=== PATIENT | female | born 1995 | race Caucasian/White ===

== ENCOUNTER 2016-07-01 22:57 | Emergency (ER) | payer SELFPAY ==
[~2016-07-01] VITALS: Ht 152.4 cm; Wt 59.0 kg
[2016-07-01 23:08] VITALS: Ht 152.4 cm; Wt 59.0 kg
--- NOTE | 2016-07-02 02:42 | ERD ---
ER Documentation Chief Complaint Date/Time DATE: 07/02/16 TIME: 02:40 Chief Complaint upper abd pain today HPI 20-year-old female presents here in emergency department for complaints of upper abdominal pain, epigastric pain radiating to the right upper quadrant started today. Patient described the pain as sharp pain, 6/and scale, now better or worse with anything. Patient denies any nausea vomiting diarrhea or constipation. Patient denies any fever or chills. Patient denies any flank pain. Patient did not take any medications up and symptoms. ROS All systems reviewed and are negative except as per history of present illness. Medications Home Meds Reported Medications [none] Unknown Strength No Conflict Check 07/02/16 Allergies Allergies: Coded Allergies: No Known Allergy (Unverified , 07/01/16) PMhx/Soc Medical and Surgical Hx: pt denies Medical Hx, pt denies Surgical Hx History of Surgery: No Anesthesia Reaction: No Hx Neurological Disorder: No Hx Respiratory Disorders: No Hx Cardiac Disorders: No Hx Psychiatric Problems: No Hx Miscellaneous Medical Probl: No Hx Alcohol Use: No Hx Substance Use: No Hx Tobacco Use: No Smoking Status: Never smoker FmHx Family History: No coronary disease, No diabetes, No other Physical Exam Vitals Vital Signs Date Time Temp Pulse Resp B/P Pulse Ox O2 Delivery O2 Flow Rate FiO2 07/01/16 23:08 98.3 77 20 122/80 100 Physical Exam GENERAL: The patient is well developed and appropriate for usual state of health, in no apparent distress. CHEST: Clear to auscultation bilaterally. There are no rales, wheezes or rhonchi. HEART: Regular rate and rhythm. No murmurs, clicks, rubs or gallops. No S3 or S4. ABDOMEN: Soft, nontender and nondistended. Good bowel sounds. No rebound or guarding. No gross peritonitis. No gross organomegaly or masses. No Tovar sign or McBurney point tenderness. BACK: No midline or flank tenderness. EXTREMITIES: Equal pulses bilaterally. There is no peripheral clubbing, cyanosis or edema. No focal swelling or erythema. Full range of motion. Grossly neurovascularly intact. NEURO: Alert and oriented. Cranial nerves 2-12 intact. Motor strength in all 4 extremities with 5/5 strength. Sensation grossly intact. Normal speech and gait. SKIN: There is no apparent rash or petechia. The skin is warm and dry. HEMATOLOGIC AND LYMPHATIC: There is no evidence of excessive bruising or lymphedema. No gross cervical, axillary, or inguinal lymphadenopathy. Result Diagram: 07/02/16 0300 07/02/16 0300 Results 24 hrs Laboratory Tests Test 07/02/16 02:57 07/02/16 03:00 Urine Bilirubin NEGATIVE Urine Clarity HAZY Urine Color LT. YELLOW Urine Glucose NEGATIVE% Urine Hemoglobin NEGATIVE Urine Ketones NEGATIVE Urine Leukocyte Esterase NEGATIVE Urine Nitrite NEGATIVE Urine Specific [place] 1.015 Urine Total Protein NEGATIVE Urine Urobilinogen 0.2 E.U./dL Urine pH 8.5 Alanine Aminotransferase (ALT/SGPT) 17IU/L Albumin 4.3g/dl Albumin/Globulin Ratio 1.30 Alkaline Phosphatase 86IU/L Anion Gap 16 Aspartate Amino Transf (AST/SGOT) 22IU/L Basophils # 0.010^3/ul Basophils % 0.5% Blood Urea Nitrogen 10mg/dl Calcium Level 8.9mg/dl Carbon Dioxide Level 30mmol/L Chloride Level 101mmol/L Creatinine 0.54mg/dl Direct Bilirubin 0.00mg/dl Eosinophils # 0.110^3/ul Eosinophils % 0.9% Globulin 3.30g/dl Glucose Level 88mg/dl Hematocrit 41.3% Hemoglobin 14.1g/dl Indirect Bilirubin 0.3mg/dl Lipase 86U/L Lymphocytes # 2.110^3/ul Lymphocytes % 21.9% Mean Corpuscular Hemoglobin 29.5pg Mean Corpuscular Hemoglobin Concent 34.1g/dl Mean Corpuscular Volume 86.5fl Mean Platelet Volume 8.5fl Monocytes # 0.810^3/ul Monocytes % 8.2% Neutrophils # 6.510^3/ul Neutrophils % 68.5% Nucleated Red Blood Cells # 0.010^3/ul Nucleated Red Blood Cells % 0.0/100WBC Platelet Count 58066^3/UL Potassium Level 3.3mmol/L Red Blood Count 4.7710^6/ul Red Cell Distribution Width 12.3% Sodium Level 144mmol/L Total Bilirubin 0.3mg/dl Total Protein 7.6g/dl White Blood Count 9.610^3/ul PROCEDURE: ULTRASOUND LIMITED ABDOMEN CLINICAL INDICATION: 20-year-old female with abdominal pain. TECHNIQUE: Multiple sonographic of the right upper quadrant of the abdomen were obtained. The images were reviewed on a PACS workstation. COMPARISON: None. FINDINGS: The pancreas is partially visualized and is otherwise normal. The liver displays normal echogenicity. The liver measures 13.7 cm in length. No evidence of intrahepatic biliary ductal dilatation is seen. The portal and hepatic veins are unremarkable. The gallbladder demonstrates no wall thickening, sludge, nor stones. No pericholecystic fluid is seen. The common bile duct measures 2.7 mm and is not dilated. The right kidney displays normal echogenicity. The right kidney measures 9.4 cm in maximal length. No caliectasis or hydronephrosis is seen. No free fluid is seen. IMPRESSION: Unremarkable right upper quadrant abdominal ultrasound. .Gelacio Haddad MD, Date Time Electronically viewed and signed by .Gelacio Haddad MD, on 07/02/2016 03:21 .M/ CC: BLANCA COX THERMOPLASTIC TECHNICIAN Procedures/MDM Medical Decision Making: Patient epigastric pain nonspecific at this time, possible gastritis related. It can be also viral. There is low suspicion for abdominal emergencies at this time. Patients abdominal exam is normal at this time. Patients radiology exam does not show any abdominal emergencies at this time. There is low suspicion for appendicitis, cholecystitis, abdominal aortic aneurysms or peritonitis at this time. There is low suspicion for sepsis. Patient appears well and is hemodynamically stable. Disposition: Home. Condition: Stable Prescription Zofran, tramadol, Mylanta, omeprazole Instructions: Patient is advised to take medications as prescribed. Patient is advised to rest, increase fluid intake and do brat diet for next 1-2 days and progress as tolerated. Patient is advised that if symptoms are worse, severe abdominal pain, uncontrolled vomiting, high fever, severe flank pain, worst signs and symptoms, to return to the emergency department immediately. Otherwise, patient can follow up with primary care doctor in 5-7 days. Departure Diagnosis: Primary Impression: Abdominal pain Abdominal location: epigastric Qualified Code: R10.13 - Epigastric pain Condition: Stable Patient Instructions: Epigastric Pain (Uncertain Cause) Additional Instructions: Patient is advised to take medications as prescribed. Patient is advised to rest, increase fluid intake and do brat diet for next 1-2 days and progress as tolerated. Patient is advised that if symptoms are worse, severe abdominal pain , uncontrolled vomiting, high fever, severe flank pain, worst signs and symptoms , to return to the emergency department immediately. Otherwise, patient can follow up with primary care doctor in 5-7 days. BLANCA COX NP Jul 02, 2016 02:42
[2016-07-02 03:14] LABS: BASOPHILS % 0.5 % (0.0-2.0); EOSINOPHILS # 0.1 10^3/ul (0.0-0.5); EOSINOPHILS % 0.9 % (0.0-7.0); HEMATOCRIT 41.3 % (37.0-47.0); HEMOGLOBIN 14.1 g/dl (12.0-16.0); LYMPHOCYTES # 2.1 10^3/ul (0.8-2.9); LYMPHOCYTES % 21.9 % (18.0-55.0); MEAN CORPUSCULAR HEMOGLOBIN 29.5 pg (29.0-33.0); MEAN CORPUSCULAR HGB CONC 34.1 g/dl (32.0-37.0); MEAN CORPUSCULAR VOLUME 86.5 fl (72.0-104.0); MEAN PLATELET VOLUME 8.5 fl (7.4-10.4); MONOCYTE # 0.8 10^3/ul (0.3-0.9); MONOCYTES % 8.2 % (0.0-13.0); NEUTROPHIL # 6.5 10^3/ul (1.6-7.5); NEUTROPHILS % 68.5 % (30.0-74.0); PLATELET COUNT 333 10^3/UL (140-440); RED BLOOD COUNT 4.77 10^6/ul (4.20-5.40); RED CELL DISTRIBUTION WIDTH 12.3 % (11.5-14.5); UNCORRECTED WBC 9.6 10^3/ul (4.8-10.8); WHITE BLOOD COUNT 9.6 10^3/ul (4.8-10.8)
[2016-07-02 03:15] LABS: CONDITION 1
--- NOTE | 2016-07-02 03:21 | RADRPT ---
PROCEDURE: ULTRASOUND LIMITED ABDOMEN CLINICAL INDICATION: 20-year-old female with abdominal pain. TECHNIQUE: Multiple sonographic of the right upper quadrant of the abdomen were obtained. The imag es were reviewed on a PACS workstation. COMPARISON: None. FINDINGS: The pancreas is partially visualized and is otherwise normal. The liver displays normal echogenicity. The liver measures 13.7 cm in length. No evidence of intrah epatic biliary ductal dilatation is seen. The portal and hepatic veins are unremarkable. The gallbladder demonstrates no wall thickening, sludge, nor stones. No pericholecystic fluid is see n. The common bile duct measures 2.7 mm and is not dilated. The right kidney displays normal echogenicity. The right kidney measures 9.4 cm in maximal length. N o caliectasis or hydronephrosis is seen. No free fluid is seen. IMPRESSION: Unremarkable right upper quadrant abdominal ultrasound. .Gelacio Haddad MD, MD Date Time Electronically viewed and signed by .Gelacio Haddad MD, on 07/02/2016 03:21 .M/
[2016-07-02 03:23] LABS: URINE BILIRUBIN (Dip) NEGATIVE (NEGATIVE); URINE BLOOD (Dip) NEGATIVE (NEGATIVE); URINE COLOR LT. YELLOW (YELLOW); URINE GLUCOSE (Dip) NEGATIVE (NEGATIVE); URINE KETONES (Dip) NEGATIVE (NEGATIVE); URINE LEUKOCYTE ESTERASE (Dip) NEGATIVE (NEGATIVE); URINE NITRITE (Dip) NEGATIVE (NEGATIVE); URINE TOTAL PROTEIN (Dip) NEGATIVE (NEGATIVE); URINE UROBILINOGEN (Dip) 0.2 E.U./dL (0.1-1.0)
[2016-07-02 03:23] LABS: ALBUMIN 4.3 g/dl (3.3-4.9)
[2016-07-02 03:24] LABS: POTASSIUM 3.3 mmol/L (3.5-5.1)
[2016-07-02 03:26] LABS: ALBUMIN/GLOBULIN RATIO 1.3; BILIRUBIN,INDIRECT 0.3 mg/dl (0-1.1); BILIRUBIN,TOTAL 0.3 mg/dl (0.2-1.3); CREATININE 0.54 mg/dl (0.44-1.00); TOTAL PROTEIN 7.6 g/dl (6.1-8.1)
[2016-07-02 03:27] LABS: CALCIUM 8.9 mg/dl (8.4-10.2)
[2016-07-02 03:28] LABS: ADD UMIC NO
[2016-07-02] MEDS ORDERED: MAG-19 PO (04:06)
[2016-07-02] MEDS ORDERED: TRAM50TA2 PO (04:06)
[2016-07-02] MEDS ORDERED: ONDA4TAB14 PO (04:06)
[2016-07-02] MEDS ORDERED: OMEP20CA16 PO (04:06)
[2016-07-02 04:14] VITALS: BP 113/67; PULSE 69; RESP 16
== END 2016-07-02 04:21 | disposition home or self-care (01) ==
LOC: FTE 22:57
DX: R10.13 Epigastric pain (principal)
CPT/HCPCS: 36415; 76705; 80053; 81003; 83690; 85025

== ENCOUNTER 2018-09-26 03:12 | Inpatient (IN) | payer MEDICAID ==
[~2018-09-26] VITALS: Ht 154.9 cm; Wt 79.4 kg
[~2018-09-26 03:12] MED LIST: MAG-19 PO; OMEP20CA16 PO; ONDA4TAB14 PO; TRAM50TA2 PO
[2018-09-26] MEDS ORDERED: PNV11TAB PO (03:34)
[2018-09-26 03:35] VITALS: BP 120/75; PULSE 75; RESP 18; Ht 154.9 cm; Wt 79.4 kg
[2018-09-26] MEDS ORDERED: MISOPROSTOL 200 MCG TAB PR PRN (04:00)
[2018-09-26] MEDS ORDERED: BUTORPHANOL 2 MG INJ IV PRN (04:00)
[2018-09-26] MEDS ORDERED: OXYTOCIN 30 UNITS/LR 500 ML IV SCH ×4 (04:00→19:30)
[2018-09-26] MEDS ORDERED: OXYTOCIN 30 UNITS/LR 500 ML IV PRN (04:00)
[2018-09-26] MEDS ORDERED: METHYLERGONOVINE 0.2 MG INJ IM PRN (04:00)
[2018-09-26] MEDS ORDERED: CARBOPROST 250 MCG INJ IM PRN (04:00)
[2018-09-26] MEDS ORDERED: IBUPROFEN 600 MG TAB PO PRN (04:00)
[2018-09-26] MEDS ORDERED: LIDOCAINE 1% (MPF) 30 ML INJ INJ PRN (04:00)
[2018-09-26] MEDS: LACTATED RINGER'S 1,000 ML IV SCH ×3 (04:22→16:44)
--- NOTE | 2018-09-26 05:47 | HP ---
Date/Time of Note Date/Time of Note DATE: 09/26/18 TIME: 05:39 OB - History Hx of Present Free Text/Dictation 23-year-old 1 para 0 at 39 weeks and 1 day of gestation with estimated date of delivery October 02, 2018 Patient presents with chief complaint of leaking fluid and uterine contractions She reports positive movement; denies any vaginal bleeding GBS status is negative Estimated Due Date: October 02, 2018 : 1 Para: 0 Care: Good Care Past Family/Social History * Past Medical, Surgical, Family and Obstetric Histories reviewed from chart. OB Admission Exam Vital Signs Vital Signs Vital Signs Date Temp Pulse Resp B/P (MAP) Pulse Ox O2 O2 Flow FiO2 Time Delivery Rate 09/26/18 97.8 75 18 120/75 Room Air 03:35 (90) Physical Exam HEENT: WNL Heart: Rhythm Normal Lungs: Clear, Equal Abdomen: WNL Extremities: Normal Reflexes: Normal Cervical Dilatation: 4cm Effacement: 100% Station: -3 Membranes: Intact Heart Rate: 140's Accelerations: Accelerations Present Varibility: Marked Contractions on Admission: < 5 Minutes Apart Intensity: Moderate Last 72 hours Lab Results Rupture of membrane negative CBC & BMP 09/26/18 04:20 PROCEDURE: US OB biophysical profile. CLINICAL INDICATION: decreased movements, contractions TECHNIQUE: Multiple sonographic images of the pelvis were obtained. The images were reviewed on a PACS workstation. COMPARISON: No prior studies are available for comparison. FINDINGS: There is a single live intrauterine gestation. Cardiac activity is present with 139 beats per minute. There is a vertex presentation. The placenta is anterior. There is no evidence of placental abruption. EJ = 7.5 cm. Biophysical profile: movement 2/2 tone 2/2. breathing 2/2 EJ 2/2 Total 8/8 RPTAT: AA . IMPRESSION: Normal biophysical profile. Slightly decreased EJ. . .Enio Mulligan MD, Date Time Electronically viewed and signed by .Enio Mulligan MD, on 09/26/2018 06:43 .S/ CC: JEANNA SOARES MD [phone] PROCEDURE: US OB. CLINICAL INDICATION: Size and dates TECHNIQUE: Multiple sonographic images of the pelvis and gravid uterus were obtained. The images were reviewed on a PACS workstation. COMPARISON: No prior studies are available for comparison. FINDINGS: Gestation: Single live intrauterine gestation. Cardiac activity: 163 beats per minute. Presentation: Vertex. Placenta: Location: Anterior. Appearance: No previa or abruption. Measurements: BPD = 8.9 cm, 36 weeks and 1 day HC = 32.4 cm, 36 weeks and 4 days AC = 37.7 cm, 41 weeks and 5 days FL = 7.6 cm, 38 weeks and 5 days Gestational Age: AUA estimated gestational age: 38 weeks 2 days LMP estimated gestational age: 39 weeks 1 day AUA estimated date of delivery: 10/08/18 The EFW = 3856 g, 81%ile based on LMP age. RPTAT: AA IMPRESSION: Single live intrauterine gestation of 38 weeks 2 days by ultrasound criteria. .Enio Mulligan MD, MD Date Time Electronically viewed and signed by .Enio Mulligan MD, MD on 09/26/2018 06:44 .S/ CC: JEANNA SOARES MD [phone] OB Assessment/Plan Reason for admission: active labor Induction Method: per Pitocin Protocol Other plan: Admit to labor and delivery Oxytocin augmentation Pain meds as needed Copies To: CC: MARKELL BUCKLEY BAHAREH MD September 26, 2018 05:46
--- NOTE | 2018-09-26 06:28 | TRIAGE ---
OB Triage Datetime Report Generated by CPN: 09/26/2018 06:28 Datetime: 09/26/2018 05:20 Stage of : Labor Labor Evaluation Frequency: 2-5 Monitor Mode: External Duration (sec)2399: 50-100 Quality: Strong Pattern: Normal: <= 5 Contractions in 10 Minutes Resting Tone [place]: Relaxed Heart Rate FHR Baseline Rate: 145 Monitor Mode: External US Variability: Moderate 6-25 bpm Accelerations: 15X15 Decelerations: None Category: Category I Datetime: 09/26/2018 04:50 Vaginal Exam Dilatation (cms): 3.5 Effacement (%): 90 Station: -2 Exam By: Zhao CARRIE Membrane Status: Intact Vaginal Bleeding: Normal Show ROM Test Kit: Negative Datetime: 09/26/2018 04:20 Stage of : Labor Labor Evaluation Frequency: 2-6 Monitor Mode: External Duration (sec)2399: 70-100 Quality: Strong Pattern: Normal: <= 5 Contractions in 10 Minutes Resting Tone [place]: Relaxed Heart Rate FHR Baseline Rate: 155 Monitor Mode: External US Variability: Moderate 6-25 bpm Accelerations: Prolonged Decelerations: None Category: Category I Datetime: 09/26/2018 04:07 Stage of : Labor Assessment Type: Admission Assessment Vaginal Bleeding: None Maternal Assessment Level of Consciousness: Fully Conscious DTR's/Clonus: DTRs 2+; No Clonus Headache: Denies Blurred Vision: No Respiratory Effort: Unlabored; Regular Rhythm; Equal Expansion Breath Sounds, Left: Clear and Equal Breath Sounds, Right: Clear and Equal Nausea/Vomiting: Denies RUQ Epigastric Pain: Denies Lower Extremities Edema: Bilateral Lower Extremities Degree: 1+ Upper Extremities Edema: None Degree: None Facial Edema: None Fall Risk Assessment History of Falling: (0) No Secondary Diagnosis: (0) No Ambulatory Aid: (0) Bedrest/Nurse Assist IV Therapy: (0) No Gait: (0) Normal/Bedrest/Immobile Mental Status: (0) Oriented to Own Ability Fall Score: 0 Fall Risk Score Definition: No Risk: No action required Pain Assessment Pain Scale: 7 Pain Presence: Intermittent Pain Type: Contraction Pain Location: Abdomen Pain Goal: 5 Datetime: 09/26/2018 04:03 Time of Arrival: 09/26/2018 04:00 EGA: 39.1 Arrived By: Ambulatory Arrived From: triage Datetime: 09/26/2018 03:41 Vaginal Exam Dilatation (cms): 3.0 Effacement (%): 90 Station: -2 Exam By: Roe Bennett RN Membrane Status: Intact Vaginal Bleeding: None Pool: Negative Nitrazine: Negative Cervix, Consistency: Soft Cervix, Position: Posterior Presentation 'A': Cephalic Datetime: 09/26/2018 03:28 Stage of : OB Triage Assessment Type: Triage Maternal Assessment Level of Consciousness: Fully Conscious DTR's/Clonus: DTRs 2+; No Clonus Headache: Denies Blurred Vision: No Respiratory Effort: Unlabored; Regular Rhythm; Equal Expansion Breath Sounds, Left: Clear and Equal Breath Sounds, Right: Clear and Equal Nausea/Vomiting: Denies RUQ Epigastric Pain: Denies Lower Extremities Edema: Bilateral Lower Extremities Degree: 1+ Upper Extremities Edema: None Degree: None Facial Edema: None Temperature Route: Oral Fall Risk Assessment History of Falling: (0) No Secondary Diagnosis: (0) No Ambulatory Aid: (0) Bedrest/Nurse Assist IV Therapy: (0) No Gait: (0) Normal/Bedrest/Immobile Mental Status: (0) Oriented to Own Ability Fall Score: 0 Fall Risk Score Definition: No Risk: No action required Pain Assessment Pain Scale: 7 Pain Presence: Intermittent Pain Type: Cramping Pain Location: Abdomen Pain Relief Measures: Comfort Measures Datetime: 09/26/2018 03:19 Time of Arrival: 09/26/2018 03:07 EGA: 39.1 Arrived By: Wheelchair Arrived From: Home Chief Complaint: UC's since 1000 Movement: Present Contractions: Regular Time Contractions Began: 09/25/2018 10:00 Contractions: Every 5 minutes Rupture of Membranes: Unsure Vaginal Bleeding: None Vaginal Discharge: Denies Recent Sexual Intercouse: Denies Abdominal Trauma: Not Applicable Patient Complaints: Contractions; Other Additional Patient Complaints: Leaking since 1000 Time Provider Notified: 09/26/2018 03:50 Provider Notified: Dr. Gomez Initial Plan: CEFM, sterile spec, nitrazine, ROM+, VE
--- NOTE | 2018-09-26 09:59 | PREAC ---
Date/Time of Note Date/Time of Note DATE: 09/26/18 TIME: 09:58 Anesthesia Eval and Record Evaluation Time Pre-Procedure Interview DATE: 09/26/18 TIME: 09:58 Age 23 Sex female NPO: 8 hrs Preoperative diagnosis intrauterine Planned procedure labor epidural Past Medical History Past Medical History: None : : (1), Para: (0), Gestational age: (39+) Surgery & Anesthesia Issues No known issue Meds Anticoagulation: No Beta Stephanie within 24 hr: No Reason Beta Stephanie not given: Pt. not on B-Stephanie Reported Medications [id number] ( 19) 1 Each Tablet, 1 TAB PO DAILY, TAB 09/26/18 Discontinued Reported Medications [none] Unknown Strength No Conflict Check 07/02/16 Discontinued Scripts Magaldrate/Simethicone* (Mylanta*) 355 Ml Susp, 30 ML PO QID PRN for GASTROINTESTINAL UPSET, #1 BOTTLE Prov:BLANCA COX NP 07/02/16 Omeprazole* (Omeprazole*) 20 Mg Capsule.dr, 20 MG PO DAILY, #30 Prov:BLANCA COX NP 07/02/16 Ondansetron (Ondansetron Odt) 4 Mg Tab.rapdis, 4 MG PO Q8 PRN for NAUSEA AND/OR VOMITING, #30 TAB Prov:BLANCA COX NP 07/02/16 Tramadol HCl (Tramadol HCl) 50 Mg Tablet, 50 MG PO Q6 PRN for PAIN, #20 TAB Prov:BLANCA COX NP 07/02/16 Current Medications Lactated Ringer's 1,000 ml @ 125 mls/hr Q8H IV Last administered on 09/26/18at 04:22; Admin Dose 125 MLS/HR; Start 09/26/18 at 03:49 Butorphanol Tartrate (Stadol) 2 mg Q2H PRN IV .PAIN; Start 09/26/18 at 04:00 Lidocaine (Xylocaine 1% (Mpf)) 30 ml ONCE PRN INJ .EPISIOTOMY; Start 09/26/18 at 04:00 Oxytocin/Lactated Ringer's 500 ml @ 500 mls/hr ONCE POST IV ; Start 09/26/18 at 04:00 Oxytocin/Lactated Ringer's 500 ml @ 125 mls/hr POST IV ; Start 09/26/18 at 04:00 Ibuprofen (Motrin) 600 mg ONCE PRN PO .PAIN 1-5; Start 09/26/18 at 04:00 Oxytocin/Lactated Ringer's 500 ml @ 0 mls/hr ONCE PRN IV .VAGINAL BLEEDING; Start 09/26/18 at 04:00 Methylergonovine Maleate (Methergine) 0.2 mg ONCE PRN IM .VAGINAL BLEEDING; Start 09/26/18 at 04:00 Carboprost Tromethamine (Hemabate) 250 mcg ONCE PRN IM .VAGINAL BLEEDING; Start 09/26/18 at 04:00 Misoprostol (Cytotec) 1,000 mcg ONCE PRN NE .VAGINAL BLEEDING; Start 09/26/18 at 04:00 Oxytocin/Lactated Ringer's 500 ml @ 0 mls/hr Q0M IV Last administered on 09/26/18at 06:36; Admin Dose 1 MLS/HR; Start 09/26/18 at 06:00 Meds reviewed: Yes Allergies Coded Allergies: No Known Allergy (Unverified , 09/26/18) Allergies Reviewed: Yes Labs/Studies Labs Reviewed: Reviewed by anesthesiologist Result Diagram: 09/26/18 0420 Laboratory Tests 09/26/18 04:20 Blood Bank Test 09/26/18 04:20 Antibody Screen NEGATIVE Blood Type O POSITIVE Rh Immune Globulin Candidate NO test: N/A Pre-procedure Exam Last vitals Vital Signs Date Temp Pulse Resp B/P (MAP) Pulse Ox O2 O2 Flow FiO2 Time Delivery Rate 09/26/18 97.8 75 18 120/75 Room Air 03:35 (90) Airway: Adequate mouth opening, Adequate thyromental dist Mallampati: Mallampati II Teeth: Normal Lung: Normal Heart: Normal ASA Physical Status ASA physical status: 2 Emergency: None Planned Anesthetic Neuraxial: Epidural Planned Pain Management Epidural, Parenteral pain med Pre-operative Attestations Prior to commencing anesthesia and surgery, the patient was re-evaluated, there was verification of: *The patient's identity *The results of appropriate recent lab work and preoperative vital signs *The above evaluation not changing prior to induction *Anesthetic plan, risk benefits, alternative and complications discussed with patient/family; questions answered; patient/family understands, accepts and wishes to proceed. EZEQUIEL CARUSO MD September 26, 2018 09:59
[2018-09-26] MEDS ORDERED: ROPIVACAINE 0.2% 100ML BAG EPI SCH (10:00)
[2018-09-26] MEDS ORDERED: NALOXONE (0.4 MG/ML) INJ IV PRN ×2 (10:00→21:00)
[2018-09-26] MEDS ORDERED: ONDANSETRON 4 MG INJ IV PRN ×3 (10:00→21:00)
[2018-09-26] MEDS ORDERED: DIPHENHYDRAMINE 50 MG INJ IV PRN ×3 (10:00→21:00)
[2018-09-26] MEDS ORDERED: FENTAnyl 2MCG/ML-ROPIV 0.2% 100 ML ONE (10:07)
--- NOTE | 2018-09-26 11:14 | PAC ---
Date/Time of Note Date/Time of Note DATE: 09/26/18 TIME: 11:14 Post-Anesthesia Notes Post-Anesthesia Note Last documented vital signs Vital Signs Date Temp Pulse Resp B/P (MAP) Pulse Ox O2 O2 Flow FiO2 Time Delivery Rate 09/26/18 97.8 75 18 120/75 Room Air 03:35 (90) Activity: WNL Respiratory function: WNL Cardiovascular function: WNL Mental status: Baseline Pain reasonably controlled: Yes Hydration appropriate: Yes Nausea/Vomiting absent: Yes Comments BP: 118/65 HR: 82 RR: 15 T: 98 SaO2: 100% EZEQUIEL CARUSO MD September 26, 2018 11:14
[2018-09-26] MEDS ORDERED: CEFAZOLIN 2 GM/50 ML (PMX) 50 ML IVPB SCH (19:30)
--- NOTE | 2018-09-26 19:31 | QN ---
Documentation Comment 23 years old 1 with single intrauterine at 39 weeks and 1 day admitted in labor. She had the oxytocin for augmentation. heart rate category 2 with persistent tachycardia remote from delivery and not responding to resuscitation. SVE: Complete/100/-1/cephalic/rupture/meconium. delivery discussed in detail with patient and her . Both expressed understanding and would like to proceed with delivery. The risk of delivery including but not limited to bleeding, infection, injury to other organs (bowel, bladder, ureter, vessels, nerves), injury to fetus, blood transfusion, blood transfusion related infection, risk of anesthesia, adhesion, needs for future , removal of uterus or any other indicated surgery was discussed with the patient and her family. She expressed understanding. All of her questions were answered. She signed the informed consent. PHYSICIAN'S VERIFICATION OF INFORMED CONSENT The patient and her were aware counseled regarding the procedure, its indications, risks, potential complications and alternatives and any questions were answered. Consent was obtained. PLANNED PROCEDURE/TREATMENT: delivery with possible using vacuum/forceps and any other indicated surgery PHYSICIAN'S VERIFICATION OF INFORMED CONSENT FOR BLOOD TRANSFUSION: There is a reasonable possibility that blood transfusion will be necessary as a result of the patient's procedure. I have discussed the following with the patient/patient's legal circulation representative: An explanation of the benefits and risks of the transfusion of blood or blood products and the possible alternatives. All questions have been answered to the patient's satisfaction. INFORMED CONSENT:The patient has been informed of: The nature of the proposed care, treatment, services, medications, interventions or procedures. Potential benefits, risks or side effects, including potential problems related to recuperation. The likelihood of achieving care treatment and service goals. Reasonable alternatives to the proposed care, treatment and service. The relevant risks, benefits and side effects related to alternatives, including the possible results of not receiving care, treatment and services. When indicated, any limitations on the confidentiality of information learned from or about the patient. If appropriate, the risks, benefits and alternatives of the drugs to be used for sedation/analgesia including moderate sedation. If appropriate, patient has been provided information on the risks, benefits and alternatives to the transfusion of blood and/or blood products. If appropriate, patient has been provided information regarding the [place] Blood Act. MARKELL BUCKLEY September 26, 2018 19:31
[2018-09-26] MEDS ORDERED: morphine SULFATE/PF (10 MG/10 ML) INJ ONE (19:56)
[2018-09-26] MEDS ORDERED: AZITHROMYCIN 500MG/NS (PMX) 250 ML ONE (20:13)
[2018-09-26] MEDS ORDERED: METOCLOPRAMIDE 10 MG INJ ONE (20:21)
[2018-09-26] MEDS ORDERED: FAMOTIDINE 20 MG INJ ONE (20:22)
[2018-09-26] MEDS ORDERED: PHENYLephrine (100 MCG/ML) 10ML SYG ONE (20:35)
[2018-09-26] MEDS ORDERED: OXYTOCIN 30 UNITS/LR 500 ML IV ONE (20:43)
[2018-09-26] MEDS ORDERED: FENTAnyl 50 MCG/ML VIAL IV PRN ×3 (21:00)
[2018-09-26] MEDS ORDERED: MEPERIDINE 25 MG INJ IV PRN (21:00)
[2018-09-26] MEDS ORDERED: PROCHLORPERAZINE 10 MG INJ IV PRN (21:00)
[2018-09-26] MEDS ORDERED: HYDROmorphONE 1 MG/5 ML IV SYRINGE IV PRN ×3 (21:00)
[2018-09-26] MEDS ORDERED: ZOLPIDEM 5 MG TAB PO PRN (21:00)
[2018-09-26] MEDS ORDERED: KETOROLAC 30 MG INJ IV PRN ×2 (21:00)
[2018-09-26] MEDS ORDERED: HYDROmorphONE 0.5 MG/0.5 ML SYG IV PRN ×2 (21:00)
--- NOTE | 2018-09-26 21:31 | OPR ---
Operative Report Planned Procedure Procedure date September 26, 2018 Procedure(s) Primary low transverse delivery Performed by see signature line [place] Laboratory Assistant: NADIRA BADILLO MD Anesthesiologist: EZEQUIEL CARUSO MD Pre-procedure diagnosis 23 years old 1 with single intrauterine at 39 weeks and 1 day with nonreassuring heart rate [id number] Anesthesia Type: Cjlic2p spinal Post-Procedure Post-procedure diagnosis 23 years old 1 with single intrauterine at 39 weeks and 1 day with nonreassuring heart rate Findings 1. Normal uterus, fallopian tubes and ovaries 2. Viable male in cephalic presentation. 9 at one minute and 9 in 5 minutes. Weight: 3835 g - 8 pounds and 7 ounces. Time of delivery: 20:28 3. Placenta with three vessel cord. Nuchal cord x1 4. Amniotic fluid -thin meconium Estimated Blood Loss: 500 - 600 mls Specimen(s) none Grafts/Implant(s) none Complication(s) none Pt Condition post procedure: stable Disposition: PACU Procedure Description INDICATION AND HISTORY: A 23 years old 1 with single intrauterine at 39 weeks and 1 day with nonreassuring heart rate, not responding to resuscitation. The risk of delivery including but not limited to bleeding, infection, injury to other organs (bowel, bladder, ureter, vessels, nerves), injury to fetus, blood transfusion, blood transfusion related infection, risk of anesthesia, adhesion, needs for future , removal of uterus or any other indicated surgery was discussed with the patient and her family. She expressed understanding. All of her questions were answered. She signed the informed consent. DESCRIPTION OF OPERATION: The patient was taken to the operating room, where she was identified and the procedure was verified. The patient received two gram of Ancef 30 minutes prior to surgery. She had the epidural anesthesia. The patient placed in the dorsal supine position with a left tilt. The heart rate was 172 bpm. The patient was then prepped and draped in the normal sterile fashion. A Pfannenstiel skin incision was made and carried down to the fascia with Bovie. The fascia was incised in the midline and the fascial incision was carried laterally with Bovie. The superior portion of the fascial incision was then grasped with Morgan clamps and tented up and dissected off the underlying rectus muscle with sharp dissection. The lower portion of the fascial incision was then made in a similar fashion. The rectus muscle was and the peritoneum was entered. The peritoneal incision was then stretched and an Kun retractor was inserted. Then, an incision was made in the lower uterine segment in a transverse fashion with a knife and extended bluntly. The was delivered atraumatically in cephalic presentation with the above findings. The umbilical cord was clamped and cut. The neonatology resuscitation team was present and the baby was handed to them. A cord blood sample was obtained for further evaluation. The placenta and membrane, which appeared normal were Removed. The uterus was exteriorized and cleared of all clot and debris. The uterus was then closed in a two layer fashion with 0-Monocryl. At the time of closure, hemostasis was noted. The gutters were irrigated. The peritoneum was reapproximated with 3-0 Vicryl. The muscle was reapproximated with 3-0 Vicryl. The fascia was approximated with 0-Vicryl in a running fashion. The subcutaneous tissue was re approximated with 3-0 vicryl. The skin was closed with 4-0 Monocryl. All instruments, sponges and needle counts were correct x3. The patient tolerated the procedure well. She transferred to the recovery room in stable condition. MARKELL BUCKLEY September 26, 2018 21:31
[2018-09-26 23:20] VITALS: BP 115/61; PULSE 86; RESP 18
[2018-09-27] MEDS ORDERED: MISOPROSTOL 200 MCG TAB PR PRN
[2018-09-27] MEDS ORDERED: OXYTOCIN 30 UNITS/LR 500 ML IV PRN
[2018-09-27] MEDS ORDERED: METHYLERGONOVINE 0.2 MG INJ IM PRN
[2018-09-27] MEDS ORDERED: METHYLERGONOVINE 0.2 MG TAB PO PRN
[2018-09-27] MEDS ORDERED: LANOLIN HPA 1 PKT TOP PRN
[2018-09-27] MEDS ORDERED: CARBOPROST 250 MCG INJ IM PRN
[2018-09-27] MEDS ORDERED: OXYTOCIN 30 UNITS/LR 500 ML IV SCH
[2018-09-27 04:00] VITALS: BP 114/59; PULSE 83; RESP 19
[2018-09-27] MEDS: DEXTROSE 5%-LR 1,000 ML IV SCH ×3 (05:51→16:00)
[2018-09-27 07:45] VITALS: BP 108/55; PULSE 83; RESP 16
[2018-09-27] MEDS ORDERED: DIPHTH/TET/ACEL PERTUSS (ADULT) 0.5 ML VIAL IM* ONE (11:00)
[2018-09-27] MEDS ORDERED: HYDROCODONE/APAP (5/325) TAB NGT PRN (11:00)
[2018-09-27 12:25] VITALS: BP 114/56; PULSE 81; RESP 17
--- NOTE | 2018-09-27 14:57 | PN ---
Date/Time of Note Date/Time of Note DATE: 09/27/18 TIME: 14:56 OB Subjective Subjective Subjective POD#1 Patient is doing well. She denies nausea, vomiting, shortness of breath, chest pain, headache. She has been ambulating without difficulty, tolerating regular diet. Pain is well controlled on current medications OB Objective Objective Objective General: AAO X 3, comfortable, NAD, appropriate mood and affect. Heart: RRR +S1, +S2, no murmurs. Lungs: Clear to auscultation (B/L), no rales, rhonchi or wheezing. ABD: +BS. Soft, non-tender. Uterus 2 cm below umbilicus Incision: Clear, dry, intact. No erythema, drainage or induration. Flank: No CVA tenderness (B/L) LE: Mild edema. No clubbing, cyanosis, thigh or calf tenderness (B/L). Homans 'sign is negative OB Assessment/Plan Other plan: 23-year-old 1 para 1-0-0-1 s/p primary delivery for nonreassuring heart rate at 39 weeks and 1 day. POD#1 - AF, VSS - Baby is doing well, at bed side. She is bonding well - Contraception methods with R/B/A/FR discussed - Continue care MARKELL BUCKLEY September 27, 2018 14:57
[2018-09-27 16:15] VITALS: BP 113/63; PULSE 82; RESP 18
[2018-09-27 19:40] VITALS: BP 99/58; PULSE 63; RESP 20
[2018-09-27] MEDS: HYDROCODONE/APAP (5/325) TAB GTB SCH (21:24)
[2018-09-27] MEDS: SENNA/DOCUSATE NA (8.6MG/50MG) TAB PO SCH (21:24)
[2018-09-27] MEDS: MAGNESIUM HYDROXIDE 30ML CUP PO PRN (21:24)
[2018-09-27] MEDS: IBUPROFEN 800 MG TAB PO SCH (21:24)
[2018-09-28 04:00] VITALS: BP 100/58; PULSE 68; RESP 18
[2018-09-28] MEDS: HYDROCODONE/APAP (5/325) TAB GTB SCH ×3 (05:25→22:30)
[2018-09-28] MEDS: IBUPROFEN 800 MG TAB PO SCH ×3 (05:25→22:29)
[2018-09-28 07:30] VITALS: BP 114/73; PULSE 81; RESP 18
[2018-09-28] MEDS: DEXTROSE 5%-LR 1,000 ML IV SCH ×2 (08:00)
--- NOTE | 2018-09-28 09:42 | PAC ---
Date/Time of Note Date/Time of Note DATE: 09/28/18 TIME: 09:42 Post-Anesthesia Notes Post-Anesthesia Note Last documented vital signs Vital Signs Date Temp Pulse Resp B/P (MAP) Pulse Ox O2 O2 Flow FiO2 Time Delivery Rate 09/28/18 97.7 81 18 114/73 100 Room Air 07:30 (87) Activity: WNL Respiratory function: WNL Cardiovascular function: WNL Mental status: Baseline Pain reasonably controlled: Yes Hydration appropriate: Yes Nausea/Vomiting absent: Yes EZEQUIEL CARUSO MD September 28, 2018 09:42
[2018-09-28] MEDS: SENNA/DOCUSATE NA (8.6MG/50MG) TAB PO SCH ×2 (10:04→22:29)
--- NOTE | 2018-09-28 13:47 | PN ---
Date/Time of Note Date/Time of Note DATE: 09/28/18 TIME: 13:45 OB Subjective Subjective Subjective POD#2 Patient is doing well. She denies nausea, vomiting, shortness of breath, chest pain, headache. She has been ambulating without difficulty, tolerating regular diet. Pain is well controlled on current medications OB Objective Objective Objective VS - Last 72 Hours, by Label Date Temp Pulse Resp B/P (MAP) Pulse Ox O2 O2 Flow FiO2 Time Delivery Rate 09/28/18 97.7 81 18 114/73 Room Air 07:30 (87) 09/28/18 98.1 68 18 100/58 Room Air 04:00 (72) 09/27/18 98.2 63 20 99/58 (72) Room Air 19:40 09/27/18 98.6 82 18 113/63 100 Room Air 16:15 (80) 09/27/18 98.0 81 17 114/56 97 Room Air 12:25 (75) 09/27/18 98.5 83 16 108/55 100 Room Air 07:45 (72) 09/27/18 98.7 83 19 114/59 96 Room Air 04:00 (77) 09/26/18 98.9 86 18 115/61 96 Room Air 23:20 (79) 09/26/18 97.8 75 18 120/75 Room Air 03:35 (90) General: AAO X 3, comfortable, NAD, appropriate mood and affect. ABD: +BS. Soft, non-tender. Uterus 2 cm below umbilicus Incision: Clear, dry, intact. No erythema, drainage or induration. Flank: No CVA tenderness (B/L) LE: Mild edema. No clubbing, cyanosis, thigh or calf tenderness (B/L). Homans 'sign is negative OB Assessment/Plan Other plan: 23-year-old 1 para 1-0-0-1 s/p primary delivery for nonreassuring heart rate at 39 weeks and 1 day. POD#2 - AF, VSS - Baby is doing well, at bed side. She is bonding well - Contraception methods with R/B/A/FR discussed - Continue care - She received Tdap vaccine - Discharge home tomorrow - Rx and instruction given - Follow up in one and 6 weeks MARKELL BUCKLEY September 28, 2018 13:47
--- NOTE | 2018-09-28 13:48 | DS ---
Date/Time of Note Date/Time of Note DATE: 09/28/18 TIME: 13:47 Obstetrical Discharge Record Final Diagnosis Final Diagnosis: Term delivered Other Final Diagnosis 23-year-old 1 para 1-0-0-1 s/p primary delivery for nonreassuring heart rate at 39 weeks and 1 day. POD#2. course was unremarkable. She is ambulating and tolerating regular diet. She is voiding without difficulty. She had bowel movement. Pain is controlled on current medication. - AF, VSS - Baby is doing well, at bed side. She is bonding well - Contraception methods with R/B/A/FR discussed - Continue care - She received Tdap vaccine - Discharge home tomorrow - Rx and instruction given - Follow up in one and 6 weeks Section Section: Primary Condition on Discharge Physical Assessment Last Vitals: Vital Signs Date Temp Pulse Resp B/P (MAP) Pulse Ox O2 O2 Flow FiO2 Time Delivery Rate 09/28/18 97.7 81 18 114/73 Room Air 07:30 (87) 09/27/18 100 16:15 Voiding: Yes Bowel Movement: Yes Breast: Soft, non-tender Calf Tenderness: No Patient Condition: Stable MARKELL BUCKLEY September 28, 2018 13:48
[2018-09-28 15:55] VITALS: BP 99/58; PULSE 74; RESP 18
[2018-09-28 20:00] VITALS: BP 118/74; PULSE 71; RESP 18
[2018-09-29] MEDS: DEXTROSE 5%-LR 1,000 ML IV SCH ×2 (01:04)
[2018-09-29 04:00] VITALS: BP 112/76; PULSE 67; RESP 19
[2018-09-29] MEDS: HYDROCODONE/APAP (5/325) TAB GTB SCH ×2 (05:46→13:55)
[2018-09-29] MEDS: IBUPROFEN 800 MG TAB PO SCH ×2 (05:46→13:55)
[2018-09-29 07:45] VITALS: BP 118/76; PULSE 61; RESP 18
[2018-09-29] MEDS ORDERED: MEASLES,MUMPS,RUBELLA VACCINE INJ SC* ONE (09:00)
[2018-09-29] MEDS ORDERED: DIPHTH/TET/ACEL PERTUSS (ADULT) 0.5 ML VIAL IM* ONE (09:00)
[2018-09-29] MEDS: MAGNESIUM HYDROXIDE 30ML CUP PO PRN (09:34)
[2018-09-29] MEDS: SENNA/DOCUSATE NA (8.6MG/50MG) TAB PO SCH (09:34)
[2018-09-29] MEDS ORDERED: NA PHOSPHATE/BIPHOS 133 ML ENEMA PR ONE (14:00)
--- NOTE | 2018-09-30 16:00 | DELSUM ---
Delivery Summary A-C Datetime Report Generated by CPN: 09/30/2018 15:59 DELIVERY PERSONNEL Registered Pharmacy Technician: Canuto, Cassie MATERNAL INFORMATION Delivery Anesthesia: Epidural; Spinal Medications in Delivery: PITOCIN 30 UNITS Delivery QBL (ml): 600 Placenta Cultured: No Maternal Complications: None LABOR SUMMARY EDC: 10/02/2018 00:00 No. Babies in Womb: 1 Attempted: No Labor Anesthesia: Epidural LABOR INFORMATION Reason for Induction: Not Applicable Onset of Labor: 09/25/2018 10:00 Complete Dilatation: 09/26/2018 18:02 Oxytocin: Augmentation Group B Beta Strep: Negative Antibiotics # of Doses: 2 Antibiotics Time of Last Dose: 09/26/2018 20:50 Steroids Given: None Reason Steroids Not Administered: Not Applicable MEMBRANES Membranes Rupture Method: Spontaneous Rupture of Membranes: 09/26/2018 18:24 Length of Rupture (hr): 2.07 Amniotic Fluid Color: Light Meconium Amniotic Fluid Amount: Large Amniotic Fluid Odor: None STAGES OF LABOR Stage 1 hr: 32 Stage 1 min: 2 Stage 2 hr: 2 Stage 2 min: 26 Stage 3 hr: 0 Stage 3 min: 1 Total Time in Labor hr: 34 Total Time in Labor min: 29 CSECTION DELIVERY Primary Indication: Nonreassuring Stat Secondary Indication: Arrest of Descent CSection Urgency: Non Elective CSection Incidence: Primary Labor: Labor Elective: Nonelective CSection Incision: Lower Uterine Transverse BABY A INFORMATION Infant Delivery Date/Time: 09/26/2018 20:28 Method of Delivery: Born in Route : No : N/A Forceps: N/A Vacuum Extraction: N/A Shoulder Dystocia : N/A SHOULDER DYSTOCIA BABY A Delivery Date/Time: 09/26/2018 20:28 PRESENTATION/POSITION BABY A Presentation: Cephalic Cephalic Presentation: Vertex Vertex Position: Right Occipital Anterior Breech Presentation: N/A PLACENTA INFORMATION BABY A Placenta Delivery Time : 09/26/2018 20:29 Placenta Method of Delivery: Manual Removal Placenta Status: Delivered SCORES BABY A Heart Rate 1 min: >100 bpm Resp Effort 1 min: Good Cry Reflex Irritability 1 min: Cough/Sneeze/Pulls Away Muscle Tone 1 min: Active Motion Color 1 min: Body [place], Extremit Blue Resuscitation Effort 1 min: Tactile Stimulation SCORE 1 MIN: 9 Heart Rate 5 min: >100 bpm Resp Effort 5 min: Good Cry Reflex Irritability 5 min: Cough/Sneeze/Pulls Away Muscle Tone 5 min: Active Motion Color 5 min: Body [place], Extremit Blue Resuscitation Effort 5 min: Tactile Stimulation SCORE 5 MIN: 9 INFORMATION BABY A Gestational Age at Delivery: 39.1 Gestational Status: Full Term- 39- 40.6 Weeks Infant Outcome : Liveborn Condition : Stable Sex: Male IDENTIFICATION/MEDS BABY A ID Band Number: [id number] ID Band Location: Right Leg; Left Arm Sensor Applied: Yes Sensor Number: [id number] Sensor Location : Cord Clamp Vitamin K Given : Not Given Erythromycin Given: Not Given WEIGHT/LENGTH BABY A Infant Birthweight (gm): 3835 Weight (lb): 8 Weight (oz): 7 Infant Length (in): 21.25 Length (cm): 53.98 CORD INFORMATION BABY A No. Cord Vessels: 3 Nuchal Cord : Around Neck x1, Loose Cord Blood Taken: Yes Infant Suction: Mouth; Nose ASSESSMENT BABY A Complications: Extended Tachycardi Physical Findings at Delivery: Caput Succedaneum; Molding of the Head; Other Physical Findings- Other: PRONOUNCED CREASES OVER BODY AND FEET Infant Respirations: Appears Normal Tank House Operator/ALS Called : No Infant Care By: PARESH RT/ARTIS RN Transferred To: Remains with Mother
== END 2018-09-29 15:50 | disposition home or self-care (01) | DRG 788 ==
LOC: L-D 03:12 → OBT 03:12 → L-D 03:50 → PP1 23:24
PROVIDERS: ADMIT Obstetrics & Gynecology Gynecology; ATTEND Obstetrics & Gynecology
PROC: 10D00Z1 Extraction of Products of Conception, Low, Open Approach (ICD-10-PCS; principal; 2018-09-26 20:00)
DX: O76 Abnormality in fetal heart rate and rhythm complicating labor and delivery (principal); Z3A.39 39 weeks gestation of pregnancy; Z37.0 Single live birth
CPT/HCPCS: 62322; 76815; 76818; 84112; 85025; 85610; 85730; 86592; 86850; 86900; 86901; 90715; 99464; G0463; J0456; J1885; J2274; J2370; J2405; J2590; J2765; J2795; J3010; J7120; J7121

== ENCOUNTER 2018-10-07 18:58 | Emergency (ER) | payer MEDICAID ==
[~2018-10-07] VITALS: Ht 154.9 cm; Wt 67.7 kg
[~2018-10-07 18:58] MED LIST changes: -MAG-19 PO; -OMEP20CA16 PO; -ONDA4TAB14 PO; +PNV11TAB PO; -TRAM50TA2 PO
[2018-10-07 19:06] VITALS: Ht 154.9 cm; Wt 67.7 kg
--- NOTE | 2018-10-07 19:52 | ERD ---
ER Documentation Chief Complaint Chief Complaint constipation x5 days s/p 10 days ago- on pain meds HPI 23-year-old female, status post 11 days ago, presents the emergency department, complaining of constipation for 5 days, associated with rectal pain since yesterday. The patient denies bleeding, no abdominal pain, no fever or chills. ROS All systems reviewed and are negative except as per history of present illness. Medications Home Meds Active Scripts Magnesium Hydroxide* (Milk Of Magnesia*) 400 Mg/5 Ml Oral.susp, 30 ML PO DAILY for 5 Days, #1 BOTTLE Prov:FATOU SIMPSON MD 10/07/18 Reported Medications [id number] ( 19) 1 Each Tablet, 1 TAB PO DAILY, TAB 09/26/18 Allergies Allergies: Coded Allergies: No Known Allergy (Unverified , 09/26/18) PMhx/Soc History of Surgery: Yes (c/section) Anesthesia Reaction: No Hx Neurological Disorder: No Hx Respiratory Disorders: No Hx Cardiac Disorders: No Hx Psychiatric Problems: No Hx Miscellaneous Medical Probl: No Hx Alcohol Use: No Hx Substance Use: No Hx Tobacco Use: No FmHx Family History: No diabetes, No coronary disease Physical Exam Vitals Vital Signs Date Temp Pulse Resp B/P (MAP) Pulse Ox O2 O2 Flow FiO2 Time Delivery Rate 10/07/18 98.0 78 17 110/70 98 Room Air 21:26 (83) 10/07/18 97.2 110 18 128/84 97 19:06 (99) Physical Exam Const: No acute distress Head: Atraumatic Eyes: Normal Conjunctiva ENT: Normal External Ears, Nose and Mouth. Neck: Full range of motion. No meningismus. Resp: Clear to auscultation bilaterally Cardio: Regular rate and rhythm, no murmurs Abd: Soft, non tender, non distended. Normal bowel sounds Skin: No petechiae or rashes Back: No midline or flank tenderness Ext: No cyanosis, or edema Neur: Awake and alert Psych: Normal Mood and Affect Results 24 hrs Current Medications Medications Dose Sig/Xavier Start Time Status Last (Trade) Ordered Route PRN Stop Time Admin Dose Reason Admin Glycerin 1 supp ONCE ONCE 10/07/18 DC 10/07/18 (Glycerin CO 20:00 20:32 (Adult)) 10/07/18 20:07 Mineral Oil 133 ml ONCE ONCE 10/07/18 DC 10/07/18 (Fleet CO 20:00 20:32 Mineral Oil 10/07/18 20:07 Enema) Procedures/MDM Differential diagnosis include but not limited to: bowel Obstruction, ileus, fecal impaction. Low suspicion for acute abdomen. Physical examination and clinical presentation consistent most likely with constipation without evidence of impaction. During the ED course the patient remained stable, no new complaints. The patient received treatment with glycerin suppository and Fleet enema followed by a bowel movement, presenting overall improvement of the symptoms. Treatment options, results and clinical impression discussed with the patient who agrees with management. The patient is stable to be treated outpatient and will be discharged home with a Rx for milk of magnesia, some side effects of prescribed medications were reviewed. The patient was instructed to follow up with the primary care provider in the next 48h. If symptoms persist, worsen or new symptoms develop, then patient should return to the ED immediately. Instructions explained and given directly by me to the patient with acknowledgment and demonstrated understanding. Disclaimer: Inadvertent spelling and grammatical errors are likely due to EHR/dictation software use and do not reflect on the overall quality of patient care. Also, please note that the electronic time recorded on this note does not necessarily reflect the actual time of the patient encounter. Departure Diagnosis: Primary Impression: Constipation Condition: Stable Patient Instructions: Constipation (Adult) Additional Instructions: Muchas laurence por [facility] para valenzuela servicio. Esperamos que en valenzuela visita a la ayaan de emergencia valenzuela problema medico haya sido solucionado y que se sienta mucho mejor. Para estar seguros que valenzuela mejoria sigue en proceso, le pedimos el favor de hacer duane aba de seguimiento medico con valenzuela doctor primario en los proximos 2-4 love. Lleve con usted estos documentos y las medicinas recetadas. Si contreras sintomas empeoran, NO SE ESPERE, por favor regrese a ayaan de emergencia INMEDIATAMENTE. En samantha que usted no tenga un mdico de atencin primaria: Llame al mdico o clnica comunitaria de referencia que aparece abajo chad las horas de consultorio para hacer duane aba para que le vean. CLINICAS: [facility] [phone] [facility] [phone] [facility] [phone] [place] [phone] [place] [phone] [facility]. [phone] FATOU BARAJAS MD October 07, 2018 19:52
[2018-10-07] MEDS ORDERED: GLYCERIN (ADULT) SUPP PR ONE (20:00)
[2018-10-07] MEDS ORDERED: MINERAL OIL 133 ML ENEMA PR ONE (20:00)
[2018-10-07] MEDS ORDERED: MAGN400O19 PO (21:10)
[2018-10-07 21:26] VITALS: BP 110/70; PULSE 78; RESP 17
== END 2018-10-07 21:26 | disposition home or self-care (01) ==
LOC: FTE 18:58
DX: K59.00 Constipation, unspecified (principal)
CPT/HCPCS: Z7502; Z7610; 99282